=== PATIENT | female | born 1990 | race African-American/Black ===

== ENCOUNTER 2017-06-21 22:36 | Emergency (ER) | payer OTHER ==
[~2017-06-21] VITALS: Ht 154.9 cm; Wt 58.5 kg
[2017-06-21] MEDS ORDERED: IBUPROFEN 800800 MG PO (23:45)
[2017-06-21] MEDS ORDERED: AMOXICILLIN 50500 M1 PO (23:45)
[2017-06-21 23:55] VITALS: BP 126/92
== END 2017-06-22 00:02 | disposition home or self-care (01) ==
LOC: ER 22:36
DX: K08.89 Other specified disorders of teeth and supporting structures (principal)

== ENCOUNTER 2018-06-04 00:45 | Emergency (ER) | payer OTHER ==
[~2018-06-04] VITALS: Ht 154.9 cm; Wt 59.0 kg
[~2018-06-04 00:45] MED LIST: AMOXICILLIN 50500 M1 PO; IBUPROFEN 800800 MG PO; KEFLEX500 M1 PO; NOHOMEMEDICATIONS; NORCO 5-325 TA1 EACH PO; ZOFRAN ODT4 MG PO
[2018-06-04 01:34] LABS: URINE BILIRUBIN NEGATIVE (Negative); URINE BLOOD NEGATIVE (Negative); URINE CLARITY SL CLOUDY; URINE COLOR YELLOW; URINE GLUCOSE-RANDOM* NEGATIVE (Negative); URINE KETONES NEGATIVE (Negative); URINE LEUKOCYTES-REFLEX NEGATIVE (Negative); URINE NITRITE-REFLEX NEGATIVE (Negative); URINE PROTEIN (DIPSTICK) TRACE (Negative)
[2018-06-04 01:52] LABS: ABSOLUTE NEUTROPHILS 4.3 thou/uL (1.4-8.2); BASOPHILS 0.7 % (0.0-2.0); EOSINOPHILS 6.9 % (0.0-3.0); HEMATOCRIT 33.8 % (37.0-47.0); HEMOGLOBIN 11.3 gm/dL (12.0-15.0); LYMPHOCYTES 26.6 % (24.0-44.0); MCHC 33.6 g/dL (28.0-37.0); MCV 86.5 fL (80.0-100.0); MONOCYTES 7.4 % (1.0-8.0); PLATELET COUNT 282 thou/uL (150-400); POLYS 58.4 % (36.0-66.0); RBC 3.91 mil/uL (4.20-5.00); RDW 14.4 % (10.5-14.5); WBC 7.4 thou/uL (4.0-11.0)
[2018-06-04 01:55] LABS: CALCIUM 9.2 mg/dL (8.5-10.1); CREATININE 1.1 mg/dL (0.6-1.0); POTASSIUM 3.3 mmol/L (3.5-5.1)
[2018-06-04 02:01] LABS: ALBUMIN 4.3 g/dL (3.4-5.0); TOTAL BILIRUBIN 0.3 mg/dL (<0.1-1.0)
[2018-06-04] MEDS ORDERED: NAPROSYN500 MG PO (03:01)
[2018-06-04] MEDS ORDERED: LEVSIN0.125 MG PO (03:01)
[2018-06-04 03:51] VITALS: BP 134/74
== END 2018-06-04 03:52 | disposition home or self-care (01) ==
LOC: ER 00:45
PROVIDERS: Emergency Medicine
DX: R10.12 Left upper quadrant pain (principal); R14.0 Abdominal distension (gaseous); R19.7 Diarrhea, unspecified

== ENCOUNTER 2019-03-15 05:38 | Emergency (ER) | payer OTHER ==
[~2019-03-15] VITALS: Ht 154.9 cm; Wt 53.5 kg
[~2019-03-15 05:38] MED LIST changes: +LEVSIN0.125 MG PO; +NAPROSYN500 MG PO
[2019-03-15 06:03] LABS: ABSOLUTE NEUTROPHILS 4.1 thou/uL (1.4-8.2); BASOPHILS 1.1 % (0.0-2.0); HEMATOCRIT 36.5 % (37.0-47.0); HEMOGLOBIN 12.3 gm/dL (12.0-15.0); LYMPHOCYTES 32.3 % (24.0-44.0); MCH 28.9 pg (26.0-34.0); MCHC 33.7 g/dL (28.0-37.0); MCV 85.9 fL (80.0-100.0); MONOCYTES 8.6 % (1.0-8.0); PLATELET COUNT 282 thou/uL (150-400); RBC 4.25 mil/uL (4.20-5.00); RDW 15.7 % (10.5-14.5); WBC 8.2 thou/uL (4.0-11.0)
[2019-03-15 06:05] LABS: URINE BILIRUBIN NEGATIVE (Negative); URINE BLOOD 2+ (Negative); URINE CLARITY CLEAR; URINE COLOR YELLOW; URINE GLUCOSE-RANDOM* NEGATIVE (Negative); URINE KETONES NEGATIVE (Negative); URINE LEUKOCYTES 1+ (Negative); URINE NITRITE NEGATIVE (Negative); URINE PROTEIN (DIPSTICK) NEGATIVE (Negative); URINE SPECIFIC GRAVITY 1.025 (1.005-1.035); URINE UROBILINOGEN 0.2 E.U./dl (0.2-1.0)
[2019-03-15 06:07] LABS: CALCIUM 8.5 mg/dL (8.5-10.1); CREATININE 1.1 mg/dL (0.6-1.0); POTASSIUM 3.7 mmol/L (3.5-5.1)
[2019-03-15 06:13] LABS: ALBUMIN 3.4 g/dL (3.4-5.0); TOTAL BILIRUBIN 0.2 mg/dL (<0.1-1.0); TOTAL PROTEIN 6.9 g/dL (6.4-8.2)
[2019-03-15 06:17] LABS: SQUAMOUS >10 Many /LPF (0-3)
[2019-03-15 06:18] LABS: CASTS None Seen /LPF (None Seen); URINE WBC 6-15 Few /HPF (0-5)
[2019-03-15 06:19] LABS: CRYSTALS None Seen /LPF (None Seen); URINE RBC 3-10 Few /HPF (0-2)
[2019-03-15 06:20] LABS: MUCUS 0-3 Light strn/LPF (None Seen)
[2019-03-15] MEDS ORDERED: NORCO 5-325 TA1 EACH PO (08:37)
[2019-03-15 08:43] VITALS: BP 104/65
== END 2019-03-15 08:44 | disposition home or self-care (01) ==
LOC: ER 05:38
PROVIDERS: Emergency Medicine
DX: A59.9 Trichomoniasis, unspecified (principal); Z87.19 Personal history of other diseases of the digestive system; F17.210 Nicotine dependence, cigarettes, uncomplicated

== ENCOUNTER 2019-04-19 13:42 | Emergency (ER) | payer OTHER ==
[~2019-04-19] VITALS: Ht 154.9 cm; Wt 53.5 kg
[2019-04-19] MEDS ORDERED: CYCLOBENZAPRINE5 MG PO (16:37)
[2019-04-19] MEDS ORDERED: MOBIC7.5 MG PO (16:37)
[2019-04-19 17:03] VITALS: BP 119/61
== END 2019-04-19 17:34 | disposition home or self-care (01) ==
LOC: ER 13:42
DX: M25.562 Pain in left knee (principal); M25.522 Pain in left elbow; M54.2 Cervicalgia; F17.210 Nicotine dependence, cigarettes, uncomplicated; V49.49XA Driver injured in collision with other motor vehicles in traffic accident, initial encounter; Y93.I9 Activity, other involving external motion; Y92.488 Other paved roadways as the place of occurrence of the external cause; Y99.8 Other external cause status